=== PATIENT | female | born 1980 | race Caucasian/White ===

== ENCOUNTER → 2019-02-18 | Emergency (ER) | payer OTHER ==
[~2019-02-18] MED LIST: SEPTRA DS TABLE1 TAB PO; TRAMADOL HCL50 MG PO
== END | disposition left against medical advice (07) ==
LOC: ER 19:17
DX: Z53.20 Procedure and treatment not carried out because of patient's decision for unspecified reasons (principal)

== ENCOUNTER 2019-04-17 10:38 | Emergency (ER) | payer OTHER ==
[~2019-04-17] VITALS: Ht 157.5 cm; Wt 72.6 kg
== END 2019-04-17 14:51 | disposition home or self-care (01) ==
LOC: ER 10:38
DX: R55 Syncope and collapse (principal)

== ENCOUNTER 2019-09-25 07:02 | Emergency (ER) | payer OTHER ==
[~2019-09-25] VITALS: Ht 157.5 cm; Wt 72.6 kg
== END 2019-09-25 11:56 | disposition home or self-care (01) ==
LOC: ER 07:02
DX: B34.8 Other viral infections of unspecified site (principal); B96.0 Mycoplasma pneumoniae [M. pneumoniae] as the cause of diseases classified elsewhere; N39.0 Urinary tract infection, site not specified

== ENCOUNTER 2019-10-12 22:03 | Emergency (ER) | payer OTHER ==
[~2019-10-12] VITALS: Ht 157.5 cm; Wt 72.6 kg
== END 2019-10-12 23:28 | disposition home or self-care (01) ==
LOC: ER 22:03
DX: G44.209 Tension-type headache, unspecified, not intractable (principal)

== ENCOUNTER 2021-07-23 18:09 | Emergency (ER) | payer OTHER ==
[~2021-07-23] VITALS: Ht 157.5 cm; Wt 72.6 kg
== END 2021-07-23 21:56 | disposition home or self-care (01) ==
LOC: ER 18:09
DX: R11.10 Vomiting, unspecified (principal); E86.0 Dehydration